=== PATIENT | female | born 1980 | race Caucasian/White ===

== ENCOUNTER → 2017-01-12 | Outpatient (CLI) | payer OTHER ==
[~2017-01-12] MED LIST: AMITRIPTYLINE H50 MG PO; RIZATRIPTAN5 MG PO; ZYRTEC10 M1 PO
[2017-01-12 11:10] LABS: CHOLESTEROL 150 mg/dL (0-200); GLUCOSE FASTING 79 mg/dL (70-110); HDL CHOLESTEROL 67 mg/dL (35-95); LDL CHOLESTEROL 76 mg/dL (-130); LDL/HDL RATIO 1 RATIO (0-4); TRIGLYCERIDES 35 mg/dL (10-160)
== END | disposition home or self-care (01) ==
LOC: CLAB 09:49
PROVIDERS: Surgery
DX: E66.01 Morbid (severe) obesity due to excess calories (principal)
CPT/HCPCS: 36415; 80061; 82947

== ENCOUNTER → 2017-06-10 | Outpatient (CLI) | payer SELFPAY | END | disposition home or self-care (01) | LOC: CBAR 10:12 | DX: E66.01 Morbid (severe) obesity due to excess calories (principal) | CPT/HCPCS: 76000 ==

== ENCOUNTER → 2017-06-10 | Outpatient (CLI) | payer OTHER ==
[2017-06-10 13:26] LABS: CHOLESTEROL 141 mg/dL (0-200); GLUCOSE FASTING 85 mg/dL (70-110); HDL CHOLESTEROL 64 mg/dL (35-95); LDL CHOLESTEROL 71 mg/dL (-130); LDL/HDL RATIO 1 RATIO (0-4); TRIGLYCERIDES 32 mg/dL (10-160)
== END | disposition home or self-care (01) ==
LOC: CLAB 12:08
PROVIDERS: Surgery
DX: E66.01 Morbid (severe) obesity due to excess calories (principal)
CPT/HCPCS: 36415; 80061; 82947